=== PATIENT | female | born 1950 | race Caucasian/White ===

== ENCOUNTER 2018-05-19 01:30 | Observation (INO) | payer MEDICARE, OTHER ==
[2018-05-19 03:37] LABS: ADD MAN DIFF? NO
[2018-05-19] MEDS: SOD CHLORIDE 0.9% 500 ML IV (03:40)
[2018-05-19 03:59] LABS: ANION GAP 10 (5-13); BLOOD UREA NITROGEN 19 mg/dl (7-20); CALCIUM 9.7 mg/dl (8.4-10.2); CARBON DIOXIDE 29 mmol/L (21-31); CHLORIDE 105 mmol/L (97-110); Estimated GFR > 60 mL/min (>60); GLUCOSE 112 mg/dl (70-220); POTASSIUM 3.9 mmol/L (3.5-5.1); SODIUM 144 mmol/L (135-144)
[2018-05-19 04:05] LABS: WHITE BLOOD COUNT 7.6 10^3/ul (4.8-10.8)
[2018-05-19 04:05] LABS: BASOPHIL # 0.1 10^3/ul (0.0-0.1); BASOPHILS % 0.8 % (0.0-2.0); EOSINOPHILS # 0.1 10^3/ul (0.0-0.5); EOSINOPHILS % 1.6 % (0.0-7.0); HEMATOCRIT 39.5 % (37.0-47.0); LYMPHOCYTES # 1.5 10^3/ul (0.8-2.9); LYMPHOCYTES % 19.3 % (15.0-51.0); MEAN CORPUSCULAR HEMOGLOBIN 30.4 pg (29.0-33.0); MEAN CORPUSCULAR HGB CONC 32.9 g/dl (32.0-37.0); MEAN CORPUSCULAR VOLUME 92.3 fl (82.0-101.0); MEAN PLATELET VOLUME 10.3 fl (7.4-10.4); MONOCYTE # 0.6 10^3/ul (0.3-0.9); MONOCYTES % 7.8 % (0.0-11.0); NEUTROPHIL # 5.3 10^3/ul (1.6-7.5); NEUTROPHILS % 70.1 % (39.0-77.0); PLATELET COUNT 300 10^3/UL (140-415); RED BLOOD COUNT 4.28 10^6/ul (4.20-5.40); RED CELL DISTRIBUTION WIDTH 12.4 % (11.5-14.5)
[2018-05-19 04:11] LABS: B-TYPE NATRIURETIC PEPTIDE 79 PG/ML (0-125); TROPONIN-I < 0.012 ng/ml (0.000-0.120)
[2018-05-19] MEDS ORDERED: ACETAMINOPHEN 325 MG TAB PO (06:00)
[2018-05-19] MEDS ORDERED: ONDANSETRON 4 MG INJ IV (06:00)
[2018-05-19] MEDS ORDERED: NITROGLYCERIN (SL) 0.4 MG TAB SL (06:00)
[2018-05-19] MEDS ORDERED: NACL 0.9% 3 ML SYG IV (06:00)
[2018-05-19 06:44] LABS: FREE T4 (FREE THYROXINE) 0.99 ng/dl (0.78-2.44)
[2018-05-19] MEDS: ENOXAPARIN 40 MG/0.4 ML SYG SC (08:51)
[2018-05-19 09:22] LABS: CREATINE KINASE 122 IU/L (23-200)
[2018-05-19 09:35] LABS: CK INDEX 0.6; CK-MB 0.69 ng/ml (0.0-2.4); TROPONIN-I < 0.012 ng/ml (0.000-0.120)
[2018-05-19 15:29] LABS: CREATINE KINASE 107 IU/L (23-200)
[2018-05-19 15:40] LABS: CK INDEX 0.5; CK-MB 0.58 ng/ml (0.0-2.4); TROPONIN-I < 0.012 ng/ml (0.000-0.120)
[2018-05-19] MEDS: ATORVASTATIN 10 MG TAB PO (20:20)
[2018-05-19] MEDS: CALCIUM CARBONATE 1.25 GM TAB PO (20:20)
[2018-05-20 05:57] LABS: ADD MAN DIFF? NO
[2018-05-20 06:02] LABS: BASOPHILS % 0.7 % (0.0-2.0); EOSINOPHILS # 0.1 10^3/ul (0.0-0.5); EOSINOPHILS % 2.8 % (0.0-7.0); HEMATOCRIT 36.3 % (37.0-47.0); HEMOGLOBIN 11.9 g/dl (12.0-16.0); LYMPHOCYTES # 1.1 10^3/ul (0.8-2.9); LYMPHOCYTES % 26.4 % (15.0-51.0); MEAN CORPUSCULAR HEMOGLOBIN 30.1 pg (29.0-33.0); MEAN CORPUSCULAR HGB CONC 32.8 g/dl (32.0-37.0); MEAN CORPUSCULAR VOLUME 91.7 fl (82.0-101.0); MEAN PLATELET VOLUME 10.2 fl (7.4-10.4); MONOCYTE # 0.3 10^3/ul (0.3-0.9); MONOCYTES % 7.4 % (0.0-11.0); NEUTROPHIL # 2.7 10^3/ul (1.6-7.5); NEUTROPHILS % 62.5 % (39.0-77.0); PLATELET COUNT 261 10^3/UL (140-415); RED BLOOD COUNT 3.96 10^6/ul (4.20-5.40); RED CELL DISTRIBUTION WIDTH 12.3 % (11.5-14.5)
[2018-05-20 06:02] LABS: WHITE BLOOD COUNT 4.3 10^3/ul (4.8-10.8)
[2018-05-20 06:29] LABS: HEMOGLOBIN A1C 5.6 % (0-5.9)
[2018-05-20 06:41] LABS: ALANINE AMINOTRANSFERASE 23 IU/L (13-69); ALBUMIN 3.8 g/dl (3.3-4.9); ALBUMIN/GLOBULIN RATIO 1.18; ALKALINE PHOSPHATASE 81 IU/L (42-121); ANION GAP 10 (5-13); ASPARTATE AMINO TRANSFERASE 30 IU/L (15-46); BILIRUBIN,INDIRECT 0.8 mg/dl (0-1.1); BILIRUBIN,TOTAL 0.8 mg/dl (0.2-1.3); BLOOD UREA NITROGEN 19 mg/dl (7-20); CALCIUM 9.4 mg/dl (8.4-10.2); CARBON DIOXIDE 28 mmol/L (21-31); CHLORIDE 105 mmol/L (97-110); CHOL/HDL RATIO 2.9 RATIO; CHOLESTEROL 160 mg/dl (100-200); CREATININE 0.75 mg/dl (0.44-1.00); Estimated GFR > 60 mL/min (>60); GLUCOSE 94 mg/dl (70-220); HDL CHOLESTEROL 54 mg/dl (35-98); LDL CHOLESTEROL,CALCULATED 91 mg/dl; MAGNESIUM 2.1 mg/dl (1.7-2.5); POTASSIUM 4.2 mmol/L (3.5-5.1); SODIUM 143 mmol/L (135-144); TRIGLYCERIDES 77 mg/dl (0-149)
[2018-05-20] MEDS: CALCIUM CARBONATE 1.25 GM TAB PO (08:45)
[2018-05-20] MEDS: ENOXAPARIN 40 MG/0.4 ML SYG SC (08:48)
== END 2018-05-20 13:11 | disposition home or self-care (01) ==
LOC: E/R 01:30 → TEL 05:39
DX: R00.2 Palpitations (principal); I35.1 Nonrheumatic aortic (valve) insufficiency
CPT/HCPCS: 36415; 71045; 80048; 80053; 80061; 82550; 82553; 83036; 83735; 83880; 84439; 84443; 84484; 85025; 93005; 93306; 96360; 99285-25; G0378